=== PATIENT | male | born 1995 | race Hispanic/Latino ===

== ENCOUNTER 2022-01-02 20:12 | Emergency (ER) | payer SELFPAY ==
--- NOTE | 2022-01-02 23:00 | EDPHYS ---
Physician Documentation [facility] Name: Juanjo Casanova Age: 26 yrs Sex: Male : 1995 Arrival Date: 01/02/2022 Time: 20:15 Bed 23 Private MD: ED Physician Lei Moulton HPI: 01/02 21:42 This 26 yrs old Male presents to ER via Ambulatory with complaints of Pt pm1 concerned about possible exposure to Monkey Pox. 21:42 The patient's rash thought to be caused by an unknown cause. The rash is located on the pm1 right calf. The rash can be described as pustular. Onset: The symptoms/episode began/occurred today. Associated signs and symptoms: Pertinent positives: itching, Pain Pertinent negatives: fever. Severity of symptoms: in the emergency department the symptoms are unchanged. Treatment given at home: None. The patient has not experienced similar symptoms in the past. The patient has not recently seen a physician. Patient works outside building fences. Historical: - Allergies: 20:24 No Known Allergies; lg3 - Home Meds: 20:24 None [Active]; lg3 - PMHx: 20:24 None; lg3 - PSHx: 20:24 hernia repair; lg3 - Immunization history:: Adult Immunizations up to date, Client reports having NOT received the Covid vaccine. - Social history:: Smoking status: Patient denies any tobacco usage or history of. Patient uses alcohol, only on a social basis. Patient/guardian denies using street drugs. ROS: 21:42 Constitutional: Negative for fever, chills, and weight loss, Cardiovascular: Negative pm1 for chest pain, palpitations, and edema, Respiratory: Negative for shortness of breath, cough, wheezing, and pleuritic chest pain, MS/Extremity: Negative for injury and deformity. 21:42 Skin: Positive for rash, of the right calf. 21:42 All other systems are negative. Exam: 21:42 Constitutional: This is a well developed, well nourished patient who is awake, alert, pm1 and in no acute distress. Head/Face: Normocephalic, atraumatic. 21:42 MS/ Extremity: Pulses equal, no cyanosis. Neurovascular intact. Full, normal range of motion. 21:42 Cardiovascular: Exam negative for acute changes, Rate: normal, Rhythm: regular, Pulses: no pulse deficits are appreciated. 21:42 Respiratory: Exam negative for acute changes, respiratory distress, shortness of breath. 21:42 Skin: Appearance: normal except for affected area, rash can be described as pustular, 6 total circular pustules ranging between 1 to 3 mm in diameter, on the right calf. 21:42 Neuro: Exam negative for acute changes, Orientation: is normal, Mentation: is normal, Motor: moves all fours. Vital Signs: 20:18 BP 138 / 55; Pulse 76; Resp 17 S; Temp 98.1(O); Pulse Ox 100% on R/A; Weight 83.91 kg lg3 (R); Height 5 ft. 7 in. (170.18 cm) (R); Pain 0/10; 20:18 Body Mass Index 28.97 (83.91 kg, 170.18 cm) lg3 MDM: 20:51 Patient medically screened. pm1 21:46 Data reviewed: vital signs. Data interpreted: Pulse oximetry: on room air is 100 %. pm1 Interpretation: normal. 22:59 Counseling: I had a detailed discussion with the patient and/or guardian regarding: the pm1 historical points, exam findings, and any diagnostic results supporting the discharge/admit diagnosis, the need for outpatient follow up, to return to the emergency department if symptoms worsen or persist or if there are any questions or concerns that arise at home. 23:05 ED course: [place] reviewed. pm1 Administered Medications: No medications were administered Disposition: 01/03 07:08 Co-signature as Attending Physician, Lei Moulton MD. [email or web address] Disposition Summary: 01/02/22 22:59 Discharge Ordered Location: Home pm1 Problem: new pm1 Symptoms: are unchanged pm1 Condition: Stable pm1 Diagnosis - Rash and other nonspecific skin eruption pm1 Followup: pm1 - With: Emergency Department - When: As needed - Reason: Worsening of condition Followup: pm1 - With: Private Physician - When: 2 - 3 days - Reason: Recheck today's complaints, Continuance of care, Re-evaluation by your physician Discharge Instructions: - Discharge Summary Sheet pm1 - Rash, Adult pm1 Forms: - Medication Reconciliation Form pm1 - Thank You Letter pm1 - Antibiotic Education pm1 - Prescription Opioid Use pm1 Prescriptions: - mupirocin 2 % Topical ointment - apply 1 application by TOPICAL route 3 times per day; 1 tube; Refills: 0, pm1 Product Selection Permitted - Cephalexin 500 mg Oral Capsule - take 1 capsule by ORAL route every 6 hours for 10 days; 40 capsule; Refills: 0, pm1 Product Selection Permitted Signatures: Jong Mott NP [employer] TOBACCO pm1 Mary Mcgregor RN RN lg3 Lei Moulton MD MD [email or web address]
--- NOTE | 2022-01-02 23:00 | ER ---
Nurse's Notes [facility] Name: Juanjo Casanova Age: 26 yrs Sex: Male : 1995 Arrival Date: 01/02/2022 Time: 20:15 Bed 23 Private MD: Diagnosis: Rash and other nonspecific skin eruption Presentation: 01/02 20:18 Chief complaint: Patient states: im concerned that i have monkey pox. i have white lg3 blisters on my right calf area and my leg is sore down to the muscle. i noticed the blisters around lunch time today. Coronavirus screen: Client denies travel out of the [place] in the last 14 days. At this time, the client does not indicate any symptoms associated with coronavirus-19. Ebola Screen: No symptoms or risks identified at this time. Initial Sepsis Screen: Does the patient meet any 2 criteria? No. Patient's initial sepsis screen is negative. Does the patient have a suspected source of infection? No. Patient's initial sepsis screen is negative. Risk Assessment: Do you want to hurt yourself or someone else? Patient reports no desire to harm self or others. Onset of symptoms was January 02, 2022. 20:18 Method Of Arrival: Ambulatory lg3 20:18 Acuity: REINALDO 4 lg3 Triage Assessment: 20:24 General: Appears in no apparent distress. comfortable, Behavior is calm, cooperative. lg3 Pain: Complains of pain in right calf. EENT: No deficits noted. No signs and/or symptoms were reported regarding the EENT system. Neuro: No deficits noted. Level of Consciousness is awake, alert, obeys commands, Oriented to person, place, time, situation. Cardiovascular: No deficits noted. Denies chest pain, shortness of breath, Capillary refill < 3 seconds Clubbing of nail beds is absent JVD is absent Patient's skin is warm and dry. Respiratory: No deficits noted. Airway is patent Trachea midline Respiratory effort is even, unlabored, Respiratory pattern is regular, symmetrical. GI: No deficits noted. No signs and/or symptoms were reported involving the gastrointestinal system. : No deficits noted. No signs and/or symptoms were reported regarding the genitourinary system. Derm: pustules noted to right calf Reports itching, pain. Musculoskeletal: No deficits noted. Circulation, motion, and sensation intact. Range of motion: intact in all extremities. Historical: - Allergies: 20:24 No Known Allergies; lg3 - Home Meds: 20:24 None [Active]; lg3 - PMHx: 20:24 None; lg3 - PSHx: 20:24 hernia repair; lg3 - Immunization history:: Adult Immunizations up to date, Client reports having NOT received the Covid vaccine. - Social history:: Smoking status: Patient denies any tobacco usage or history of. Patient uses alcohol, only on a social basis. Patient/guardian denies using street drugs. Screenin:06 Abuse screen: Denies threats or abuse. Denies injuries from another. Nutritional hb screening: No deficits noted. Tuberculosis screening: No symptoms or risk factors identified. Fall Risk None identified. Assessment: 21:30 Reassessment: Kin Dept notified, awaiting callback. hb 21:44 General: Appears in no apparent distress. Behavior is calm, cooperative. Pain: Pain hb currently is 2 out of 10 on a pain scale. at worst was 8 out of 10 on a pain scale. Neuro: Level of Consciousness is awake, alert, obeys commands, Oriented to person, place, time, situation. Cardiovascular: Patient's skin is warm and dry. Respiratory: Respiratory effort is even, unlabored, Respiratory pattern is regular, symmetrical. GI: No signs and/or symptoms were reported involving the gastrointestinal system. : No signs and/or symptoms were reported regarding the genitourinary system. EENT: No signs and/or symptoms were reported regarding the EENT system. Derm: 6 pustules noted to left inner calf, firm and painful to touch. 23:16 Reassessment: PUI form sent electronically to health department carpentry professional Juli Lyman[facility] . Vital Signs: 20:18 BP 138 / 55; Pulse 76; Resp 17 S; Temp 98.1(O); Pulse Ox 100% on R/A; Weight 83.91 kg lg3 (R); Height 5 ft. 7 in. (170.18 cm) (R); Pain 0/10; 20:18 Body Mass Index 28.97 (83.91 kg, 170.18 cm) lg3 ED Course: 20:15 Patient arrived in ED. [email or web address] 20:24 Triage completed. lg3 20:24 Arm band placed on right wrist. lg3 20:33 Jong Mott NP is PHCP. pm1 20:33 Lei Moulton MD is Attending Physician. pm1 21:08 Therese Ferrer, RN is Primary Nurse. hb 22:06 Patient has correct armband on for positive identification. hb 23:41 No provider procedures requiring assistance completed. Patient did not have IV access hb during this emergency room visit. Administered Medications: No medications were administered Medication: 22:07 VIS not applicable for this client. hb Outcome: 22:59 Discharge ordered by MD. pm1 23:41 Discharged to home ambulatory. hb 23:41 Condition: stable 23:41 Discharge instructions given to patient, Instructed on discharge instructions, follow up and referral plans. medication usage, Demonstrated understanding of instructions, follow-up care, medications, Prescriptions given X 2. 23:47 Patient left the ED. hb Signatures: Jong Mott NP [employer] DEPUTY OR CALENDAR CLERK pm1 Therese Ferrer, RN RN Mary Mcgregro RN RN lg3 Denise Dawkins [email or web address]
[2022-01-03 02:58] VITALS: BP 138/55; TEMP 98.1; O2SAT 100
== END 2022-01-02 23:47 | disposition home or self-care (01) ==
LOC: ER 20:12
DX: R21 Rash and other nonspecific skin eruption (principal)
CPT/HCPCS: 99282